=== PATIENT | male | born 1950 | race Caucasian/White ===

== ENCOUNTER 2023-09-23 00:41 | Observation (INO) | payer OTHER ==
[2023-09-23 01:27] VITALS: BMI 18.3
[2023-09-23] MEDS ORDERED: ONDANSETRON 4 MG/2 ML VIAL IVPUSH PRN (06:49)
[2023-09-23] MEDS ORDERED: LORazepam 0.5 MG TABLET PO PRN (06:50)
[2023-09-23] MEDS: DEXTROSE 5%-0.45% SALINE 1,000 ML IV SCH (07:07)
[2023-09-23 09:25] VITALS: BP 117/77; PULSE 93; RESP 25; TEMP 97
[2023-09-23] MEDS ORDERED: DOCUSATE SODIUM 100 MG CAPSULE (FP) PO PRN (11:49)
[2023-09-23] MEDS ORDERED: SENNOSIDES 8.6MG TABLET (FP) PO SCH (22:00)
[2023-09-24] MEDS ORDERED: POLYETHYLENE GLYCOL (HEALTHYLAX) 3350 17 GM PACKET PO SCH (10:00)
== END 2023-09-23 18:20 | disposition expired ==
LOC: JER 00:41 → INTOOBSV 01:31 → JERBED 01:31
PROVIDERS: ADMIT Internal Medicine; ATTEND Internal Medicine
PROC: 3E0337Z Introduction of Electrolytic and Water Balance Substance into Peripheral Vein, Percutaneous Approach (ICD-10-PCS; principal; 2023-09-23)
DX: I46.9 Cardiac arrest, cause unspecified (principal); C16.9 Malignant neoplasm of stomach, unspecified; C78.00 Secondary malignant neoplasm of unspecified lung; Z66 Do not resuscitate; Z90.49 Acquired absence of other specified parts of digestive tract; I10 Essential (primary) hypertension; Z86.718 Personal history of other venous thrombosis and embolism
CPT/HCPCS: 99285-25; G0378